=== PATIENT | male | born 1990 ===

== ENCOUNTER 2016-11-17 16:15 | Emergency (ER) | payer OTHER ==
[2016-11-17 17:02] VITALS: BP 123/79
--- NOTE | 2016-11-17 17:35 | UC ---
FLU HPI - HPI Summary HPI Summary: 26 year old with complaints of sudden onset of fever, chills, body aches, headache x 3 days. Denies nausea or vomiting. Denies chest pain or difficulty breathing - History of Current Complaint Chief Complaint: UCRespiratory Stated Complaint: ACHY BACK,ACHY LEGS,ACHY RIBS Time Seen by Provider: 11/17/16 17:01 Hx Obtained From: Patient Onset/Duration: Sudden Onset, Lasting Days - 3, Still Present Severity Currently: Moderate Severity Initially: Severe Associated Signs & Symptoms: Positive: Fever, Myalgia, Headache. Negative: T Max, F/C, Cough, Sore Throat, Nasal Congestion, Vomiting, Diarrhea Related Hx: Possible Flu/Infectious Exposure - Risk Factors Influenza Risk Factors: Negative - Allergy/Home Medications Allergies/Adverse Reactions: Allergies Allergy/AdvReac Type Severity Reaction Status Date / Time Meperidine [From Demerol HCl] Allergy Rash Verified 11/17/16 17:02 Morphine Allergy Rash Verified 11/17/16 17:02 PMH/Surg Hx/FS Hx/Imm Hx Previously Healthy: Yes Endocrine History Of: Denies: Diabetes Cardiovascular History Of: Denies: Cardiac Disorders Respiratory History Of: Denies: Asthma - Surgical History Surgical History: None - Family History Known Family History: Negative: Hypertension, Diabetes - Social History Occupation: Employed Full-time Lives: With Family Alcohol Use: None Substance Use Type: None Smoking Status (MU): Never Smoked Tobacco Review of Systems Constitutional: Fever, Chills Skin: Negative Eyes: Negative ENT: Nasal Discharge Respiratory: Negative Cardiovascular: Negative Gastrointestinal: Negative Genitourinary: Negative Motor: Negative Neurovascular: Negative Musculoskeletal: Myalgia Neurological: Headache Psychological: Negative All Other Systems Reviewed And Are Negative: Yes Physical Exam Triage Information Reviewed: Yes Appearance: No Pain Distress, Well-Nourished, Ill-Appearing - mildly Vital Signs: Initial Vital Signs Temp 98.9 F 11/17/16 16:58 Pulse 76 11/17/16 16:58 Resp 14 11/17/16 16:58 BP 123/79 11/17/16 16:58 Pulse Ox 97 11/17/16 16:58 Vital Signs Reviewed: Yes Eyes: Positive: Conjunctiva Clear. Negative: Discharge ENT: Positive: Pharyngeal erythema - mild, Nasal congestion - mild, TMs normal. Negative: Tonsillar swelling Neck: Positive: Supple, Nontender, No Lymphadenopathy Respiratory: Positive: Lungs clear, Normal breath sounds. Negative: Crackles, Wheezing Cardiovascular: Positive: RRR, No Murmur Musculoskeletal: Positive: Strength Intact, ROM Intact Neurological: Positive: Alert, Muscle Tone Normal Psychological: Positive: Age Appropriate Behavior - pleasant and cooperative Skin: Positive: rashes - mild acne on left anterior chest. Negative: breakdown Flu Course/Dx - Course Course Of Treatment: Influenza rapid test - negative - Differential Dx/Diagnosis Differential Diagnosis/HQI/PQRI: Influenza, Upper Respiratory Infection Provider Diagnoses: Influenza like illness Discharge - Discharge Plan Condition: Stable Disposition: HOME Patient Education Materials: Influenza (ED) Forms: *Work Release
== END 2016-11-17 17:53 | disposition home or self-care (01) ==
LOC: UCCORT 16:15
DX: J11.1 Influenza due to unidentified influenza virus with other respiratory manifestations (principal); Z88.5 Allergy status to narcotic agent
CPT/HCPCS: 87502; 99201; G0463

== ENCOUNTER 2017-04-16 16:12 | Emergency (ER) | payer SELFPAY ==
[2017-04-16 16:39] VITALS: BP 136/78
--- NOTE | 2017-04-16 17:33 | UC ---
Lower Extremity/Ankle HPI - HPI Summary HPI Summary: left foot x 1 day , no known injury , has been on his feet at work for long hrs pain with walking , better with rest - History of Current Complaint Chief Complaint: UCLowerExtremity Stated Complaint: left foot pain Time Seen by Provider: 04/16/17 17:06 Hx Obtained From: Patient Onset/Duration: Gradual Onset, Lasting Days - 1, Still Present Severity Initially: Moderate Severity Currently: Moderate Aggravating Factor(s): Standing, Ambulation Alleviating Factor(s): Rest, Elevation, Ice Able to Bear Weight: Yes - Allergies/Home Medications Allergies/Adverse Reactions: Allergies Allergy/AdvReac Type Severity Reaction Status Date / Time Meperidine [From Demerol HCl] Allergy Rash Verified 04/16/17 16:39 Morphine Allergy Rash Verified 04/16/17 16:39 PMH/Surg Hx/FS Hx/Imm Hx Previously Healthy: Yes - Surgical History Surgical History: None - Family History Known Family History: Negative: Hypertension, Diabetes - Social History Alcohol Use: None Substance Use Type: None Smoking Status (MU): Never Smoked Tobacco Review of Systems Constitutional: Negative Skin: Negative Eyes: Negative ENT: Negative Musculoskeletal: Arthralgia - left foot pain All Other Systems Reviewed And Are Negative: Yes Physical Exam Triage Information Reviewed: Yes Appearance: Well-Appearing, No Pain Distress, Well-Nourished Vital Signs: Initial Vital Signs Temp 98 F 04/16/17 16:31 Pulse 61 04/16/17 16:31 Resp 18 04/16/17 16:31 BP 136/78 04/16/17 16:31 Vital Signs Reviewed: Yes Eyes: Positive: Conjunctiva Clear ENT Exam: Normal ENT: Positive: Normal ENT inspection Neck: Positive: Supple, Nontender, No Lymphadenopathy Respiratory: Positive: Chest non-tender, Lungs clear, Normal breath sounds Cardiovascular: Positive: RRR, No Murmur, Pulses Normal Musculoskeletal: Positive: Other: - left foot: mild swelling, no erythema, + tenderness mid foot Lower Extremity Course/Dx - Differential Dx/Diagnosis Provider Diagnoses: left foot pain Discharge - Discharge Plan Condition: Stable Disposition: HOME Prescriptions: Naproxen 500 mg PO BID #20 tab Patient Education Materials: Arthralgia (ED) Forms: *Work Release Referrals: Maddi Luna MD [Primary Care Provider] - 7 Days Additional Instructions: left foot pain ? sprain / strain , inflammation of the metatarsal bones cont. with rest , ice, elevation , naproxen as needed for pain and inflammation follow up with your pcp in one week
--- NOTE | 2017-04-16 17:44 | RAD ---
Indication: Left foot pain. 3 views of left foot demonstrates no fracture. No other bone or joint abnormality is noted. IMPRESSION: No fracture of the left foot is noted.
== END 2017-04-16 17:36 | disposition home or self-care (01) ==
LOC: UCCORT 16:12
DX: M79.672 Pain in left foot (principal); Z88.5 Allergy status to narcotic agent
CPT/HCPCS: 99213; G0463

== ENCOUNTER 2017-09-20 16:34 | Emergency (ER) | payer SELFPAY ==
--- NOTE | 2017-09-20 17:06 | UC ---
Lower Extremity/Ankle HPI - HPI Summary HPI Summary: 27 year old male presents for recheck of right ankle pain. - History of Current Complaint Stated Complaint: RIGHT ANKLE INJURY Time Seen by Provider: 09/20/17 17:06 Hx Obtained From: Patient Onset/Duration: Sudden Onset Severity Initially: Moderate Severity Currently: Moderate Pain Scale Used: 0-10 Numeric - 0 Aggravating Factor(s): Standing - Allergies/Home Medications Allergies/Adverse Reactions: Allergies Allergy/AdvReac Type Severity Reaction Status Date / Time Meperidine [From Demerol HCl] Allergy Rash Verified 09/20/17 17:09 Morphine Allergy Rash Verified 09/20/17 17:09 PMH/Surg Hx/FS Hx/Imm Hx Previously Healthy: Yes - Surgical History Surgical History: None - Family History Known Family History: Negative: Hypertension, Diabetes - Social History Alcohol Use: None Substance Use Type: None Smoking Status (MU): Never Smoked Tobacco Review of Systems Constitutional: Negative Skin: Negative Eyes: Negative ENT: Negative Respiratory: Negative Cardiovascular: Negative Gastrointestinal: Negative Genitourinary: Negative Motor: Negative Neurovascular: Negative Musculoskeletal: Other: - rigght ankle sprain Neurological: Negative Psychological: Negative All Other Systems Reviewed And Are Negative: Yes Physical Exam Triage Information Reviewed: Yes Vital Signs Reviewed: Yes Eye Exam: Normal ENT Exam: Normal Dental Exam: Normal Neck exam: Normal Neck: Positive: 1 Respiratory Exam: Normal Cardiovascular Exam: Normal Abdominal Exam: Normal Musculoskeletal: Positive: Other: - right ankle sprain Neurological Exam: Normal Psychological Exam: Normal Skin Exam: Normal Lower Extremity Course/Dx - Differential Dx/Diagnosis Provider Diagnoses: resolving right ankle sprain Discharge - Discharge Plan Condition: Stable Disposition: HOME Prescriptions: Ibuprofen TAB* [Motrin TAB* 800 MG] 800 mg PO Q6H #30 tab Patient Education Materials: Ankle Sprain (ED) Forms: *Work Release Referrals: Shaq Liz MD [Medical Doctor] - Maddi Luna MD [Medical Doctor] -
[2017-09-20 17:08] VITALS: BP 134/69
--- NOTE | 2017-09-20 17:42 | RAD ---
INDICATION: Right ankle injury COMPARISON: None TECHNIQUE: AP, lateral, and oblique views were obtained. FINDINGS: The bony structures, joint spaces, and soft tissues are normal for age. IMPRESSION: NEGATIVE EXAMINATION
== END 2017-09-20 18:07 | disposition home or self-care (01) ==
LOC: UCCORT 16:34
DX: S93.401A Sprain of unspecified ligament of right ankle, initial encounter (principal); X58.XXXA Exposure to other specified factors, initial encounter; Y92.9 Unspecified place or not applicable
CPT/HCPCS: 99213; G0463

== ENCOUNTER 2019-07-29 12:41 | Emergency (ER) | payer OTHER ==
[2019-07-29 12:54] VITALS: BP 134/69
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
== END 2019-07-29 13:51 | disposition home or self-care (01) ==
LOC: UCCORT 12:41
DX: M25.511 Pain in right shoulder (principal); M79.89 Other specified soft tissue disorders; Z88.8 Allergy status to other drugs, medicaments and biological substances; Z88.5 Allergy status to narcotic agent
CPT/HCPCS: 99211; G0463